=== PATIENT | female | born 1980 | race African-American/Black ===

== ENCOUNTER 2020-08-25 16:47 | Emergency (ER) | payer MEDICAID ==
[~2020-08-25] VITALS: Ht 162.6 cm; Wt 63.0 kg
[2020-08-25] MEDS ORDERED: METOCLOPRAMIDE HCL 10MG/2ML VIAL IV ONE (19:00)
[2020-08-25] MEDS ORDERED: METOCLOPRAMIDE HCL IV NR (20:00)
[2020-08-25] MEDS ORDERED: SODIUM CHLORIDE 0.9% IV NR (20:00)
[2020-08-25 20:40] LABS: BASOPHILS % 0.6 % (0.0-2.0); EOSINOPHILS % 1.5 % (0.0-5.0); HEMATOCRIT. 35.3 % (36.0-48.0); HEMOGLOBIN. 11.8 g/dL (12.0-16.0); LYMPHOCYTES % 25.8 % (20.0-50.0); MEAN CORPUSCULAR HEMOGLOBIN 28.2 pg (28.0-32.0); MEAN CORPUSCULAR VOLUME 84.3 fL (81.0-99.0); MEAN PLATELET VOLUME 9.2 fl (7.4-10.4); MONOCYTES % 5.2 % (2.0-8.0); NEUTROPHILS % 66.9 % (40.0-76.0); PLATELET 161 x1000/uL (130-400); RED BLOOD CELL COUNT 4.19 mill/uL (4.2-5.4); RED CELL DISTRIBUTION WIDTH 13.3 % (11.6-14.6)
[2020-08-25 20:52] LABS: CHLORIDE 105 mEq/L (98-107)
[2020-08-25 21:01] LABS: CLARITY URINE CLOUDY (CLEAR); COLOR URINE YELLOW (YELLOW); KETONES URINE 3+ (NEGATIVE); LEUKOCYTE ESTERASE URINE 1+ (NEGATIVE); NITRITE URINE NEGATIVE (NEGATIVE); OCCULT BLOOD URINE NEGATIVE (NEGATIVE); PROTEIN URINE NEGATIVE (NEGATIVE); SPECIFIC GRAVITY URINE 1.015 (1.005-1.030)
[2020-08-25 21:06] LABS: HCG SCREEN POSITIVE
[2020-08-25] MEDS ORDERED: NITROFURANTOIN 100MG M/M CAPSULE PO ONE (22:15)
[2020-08-25] MEDS ORDERED: NITR-87 MT (22:15)
[2020-08-25 23:13] VITALS: BP 108/62
== END 2020-08-25 23:33 | disposition home or self-care (01) ==
LOC: ER 16:47
DX: O26.92 Pregnancy related conditions, unspecified, second trimester (principal); R07.89 Other chest pain; R33.9 Retention of urine, unspecified; Z3A.20 20 weeks gestation of pregnancy
CPT/HCPCS: 36415; 51702; 71045; 76805; 80048; 80076; 81003; 81025; 84484; 84703; 85025; 93005; 96365; 99285; J2765; J7050; Z7610; A4315

== ENCOUNTER 2020-08-25 23:49 | Observation (INO) | payer MEDICAID ==
[~2020-08-25] VITALS: Ht 162.6 cm; Wt 61.2 kg
[~2020-08-25 23:49] MED LIST: NITR-87 MT
== END 2020-08-26 00:03 | disposition home or self-care (01) ==
LOC: 8 EST LDRP 23:49
PROVIDERS: ADMIT Specialist; ATTEND Specialist
DX: O09.522 Supervision of elderly multigravida, second trimester (principal); Z3A.20 20 weeks gestation of pregnancy
CPT/HCPCS: 59025; G0378